=== PATIENT | male | born 1985 | race American Indian/Alaskan Native ===

== ENCOUNTER 2020-11-24 11:31 | Emergency (ER) | payer SELFPAY ==
[2020-11-24 12:21] VITALS: BP 143/86
--- NOTE | 2020-11-24 12:53 | Emergency Department Report ---
ED ENT HPI - General Chief complaint: Sore Throat Stated complaint: FEVER Source: patient Mode of arrival: Ambulatory Limitations: No Limitations - History of Present Illness Initial comments: 35-year-old morbid obese -Fil[place] male presents to the emergency room complaining of a sore throat for 2 to 3 days. Patient states he thought he had a fever. Patient is taken ibuprofen and use [id number] Cepacol throat spray. Denies any chest pain shortness of breath headache. States that the throat pain is worse with swallowing. MD complaint: sore throat Onset/Timin -: days(s) Location: throat Severity scale (0 -10): 5 Quality: burning, stabbing, sharp Consistency: constant Improves with: none, NSAID Worsens with: swallowing Associated Symptoms: pain with swallowing, sore throat. denies: fever, cough, gum swelling, toothache - Related Data Previous Rx's Medication Instructions Recorded Last Taken Type Amoxicillin/K Clav Tab [Augmentin 1 tab PO Q12HR 10 Days #20 tab 11/24/20 Unknown Rx 875 mg] Ibuprofen [Motrin 800 MG tab] 800 mg PO Q8HR PRN #30 tablet 11/24/20 Unknown Rx Allergies Allergy/AdvReac Type Severity Reaction Status Date / Time No Known Allergies Allergy Unverified 11/24/20 12:17 ED Dental HPI - General Chief complaint: Sore Throat Stated complaint: FEVER Source: patient Mode of arrival: Ambulatory Limitations: No Limitations - Related Data Previous Rx's Medication Instructions Recorded Last Taken Type Amoxicillin/K Clav Tab [Augmentin 1 tab PO Q12HR 10 Days #20 tab 11/24/20 Unknown Rx 875 mg] Ibuprofen [Motrin 800 MG tab] 800 mg PO Q8HR PRN #30 tablet 11/24/20 Unknown Rx Allergies Allergy/AdvReac Type Severity Reaction Status Date / Time No Known Allergies Allergy Unverified 11/24/20 12:17 ED Review of Systems ROS: Stated complaint: FEVER Other details as noted in HPI Comment: All other systems reviewed and negative ED Past Medical Hx - Past Medical History Additional medical history: ALLERGIES - Surgical History Past Surgical History?: No - Medications Home Medications: Home Medications Medication Instructions Recorded Confirmed Last Taken Type Amoxicillin/K Clav Tab [Augmentin 1 tab PO Q12HR 10 Days #20 tab 11/24/20 Unknown Rx 875 mg] Ibuprofen [Motrin 800 MG tab] 800 mg PO Q8HR PRN #30 tablet 11/24/20 Unknown Rx ED Physical Exam - General Limitations: No Limitations General appearance: alert, in no apparent distress - Head Head exam: Present: atraumatic, normocephalic - Eye Eye exam: Present: normal appearance - ENT ENT exam: Present: mucous membranes moist - Expanded ENT Exam Expanded Throat exam: Positive: tonsillar erythema, tonsillomegaly, tonsillar exudate - Neck Neck exam: Present: normal inspection, full ROM - Respiratory Respiratory exam: Absent: accessory muscle use - Extremities Exam Extremities exam: Present: normal inspection - Back Exam Back exam: Present: normal inspection - Neurological Exam Neurological exam: Present: alert, oriented X3, normal gait - Psychiatric Psychiatric exam: Present: normal affect, normal mood - Skin Skin exam: Present: warm, dry, intact, normal color. Absent: rash ED Course Vital Signs 11/24/20 11/24/20 12:19 12:45 Temperature 98.1 F Pulse Rate 97 H Respiratory 50 H 20 Rate Blood Pressure 143/86 O2 Sat by Pulse 95 100 Oximetry ED Medical Decision Making - Medical Decision Making 35-year-old morbid obese -[place] male presents to the emergency room complaining of a sore throat for 2 to 3 days. Patient states he thought he had a fever. Patient is taken ibuprofen and use [id number] Cepacol throat spray. Denies any chest pain shortness of breath headache. States that the throat pain is worse with swallowing. Patient will be treated for strep as he has exudate with bilateral tonsillar hypertrophy treatment erythematous. Patient will be treated with Augmentin 875 p.o. twice daily for 10 days ibuprofen 800 mg every 8 hours as needed. Encouraged to increase his fluid intake. Critical care attestation.: If time is entered above; I have spent that time in minutes in the direct care o f this critically ill patient, excluding procedure time. ED Disposition Clinical Impression: Streptococcal pharyngitis Disposition: TO HOME OR SELFCARE Is pt being admited?: No Does the pt Need Aspirin: No Condition: Stable Instructions: Strep Throat, Adult, [id number] Additional Instructions: Please complete your antibiotics as prescribed pain medication as needed. Increase your fluid intake advance your diet as tolerated follow-up with a primary care provider. Prescriptions: Amoxicillin/K Clav Tab [Augmentin 875 mg] 1 tab PO Q12HR 10 Days #20 tab Ibuprofen [Motrin 800 MG tab] 800 mg PO Q8HR PRN #30 tablet PRN Reason: Pain, Moderate (4-6) Referrals: [facility] [Provider Group] - 3-5 Days Forms: Work/School Release Form(ED)
== END 2020-11-24 13:35 | disposition home or self-care (01) ==
LOC: ED 11:31
DX: J02.0 Streptococcal pharyngitis (principal); Z79.899 Other long term (current) drug therapy
CPT/HCPCS: 99281